=== PATIENT | female | born 1980 | race Caucasian/White ===

== ENCOUNTER 2019-09-27 23:15 | Emergency (ER) | payer BC, OTHER ==
[~2019-09-27] VITALS: Ht 172.7 cm; Wt 80.0 kg
[2019-09-27] MEDS ORDERED: IV NORMAL SALINE 1,000ML 1,000 ML IV SCH (23:48)
[2019-09-28 00:07] LABS: BASO % 0 % (0-3); EOS # 0.2 x10^3/uL (0.0-0.7); EOS % 3 % (0-3); HEMATOCRIT 38.8 % (36.0-47.0); HEMOGLOBIN 13.1 g/dL (12.0-15.5); LYMPH # 2.5 x10^3/uL (1.0-4.8); LYMPH % 35 % (24-48); MEAN CORPUSCULAR HEMOGLOBIN 32 pg (25-35); MEAN CORPUSCULAR HGB CONC 34 g/dL (31-37); MEAN CORPUSCULAR VOLUME 94 fL (79-100); MONO # 0.5 x10^3/uL (0.0-1.1); MONO % 7 % (0-9); NEUT % 55 % (31-73); PLATELET COUNT 262 x10^3/uL (140-400); RED BLOOD COUNT 4.15 x10^6/uL (3.50-5.40); RED CELL DISTRIBUTION WIDTH 12.6 % (11.5-14.5); WHITE BLOOD COUNT 7.2 x10^3/uL (4.0-11.0)
[2019-09-28 00:11] LABS: CREATININE 0.7 mg/dL (0.6-1.0); GFR 92.2; POTASSIUM 4.1 mmol/L (3.5-5.1)
[2019-09-28] MEDS ORDERED: FAMOTIDINE 20 MG/2 ML VIAL IVP ONE (00:15)
[2019-09-28] MEDS ORDERED: ONDANSETRON PF 4 MG/2 ML VIAL. IVP ONE (00:15)
[2019-09-28 00:16] LABS: ALBUMIN 4.1 g/dL (3.4-5.0); ALBUMIN/GLOBULIN RATIO 1.3 (1.0-1.7); TOTAL BILIRUBIN 0.4 mg/dL (0.2-1.0); TOTAL PROTEIN 7.3 g/dL (6.4-8.2)
[2019-09-28 00:18] LABS: BACTERIA,URINE 0 /HPF (0-FEW); BILIRUBIN,URINE NEG (NEG); CLARITY,URINE CLEAR; COLOR,URINE YELLOW; GLUCOSE,URINE NEG (NEG); NITRITE,URINE NEG (NEG); RBC,URINE 0 /HPF (0-2); SQUAMOUS EPITHELIAL CELL,UR OCC /LPF; UROBILINOGEN,URINE 0.2 mg/dL (0.2 mg/dL); WBC,URINE RARE /HPF (0-4)
[2019-09-28] MEDS ORDERED: CONTRAST GIVEN MC PRN (00:45)
[2019-09-28] MEDS ORDERED: IOHEXOL 300 MG/ML 75 ML VIAL. IV ONE (01:00)
[2019-09-28] MEDS ORDERED: DICYCLOMINE 20 MG/2 ML AMPUL. IM ONE (01:30)
--- NOTE | 2019-09-28 01:43 | RAD ---
PQRS Compliance Statement: One or more of the following individualized dose reduction techniques were utilized for this examination: 1. Automated exposure control 2. Adjustment of the mA and/or kV according to patient size 3. Use of iterative reconstruction technique CT ABD PELV W/ IV CONTRST ONLY Clinical Indication: Left upper quadrant abdominal pain, nausea vomiting x1 week. Comparison: None. Technique: Helical CT imaging of the abdomen and pelvis is performed after 75 cc of Omnipaque 300 IV contrast. Oral contrast not administered. Findings: Lung bases are clear. Cardiac size normal. Liver, gallbladder, pancreas, adrenal glands, abdominal aorta, and kidneys are normal. 2 small hypodensities of the anterior spleen may be cysts or hemangiomas. Stomach unremarkable. There is no dilated small bowel. There is no colon wall thickening. Appendix not identified. If not surgically absent, no secondary signs of appendicitis. No abdominal adenopathy or free fluid. Moderate colon stool volume. Urinary bladder is normal. Small hypodensity of the posterior endocervical junction may be a fibroid versus nabothian cyst. There is trace pelvic free fluid, likely physiologic in a patient of this age. Anteverted uterus. Small left femoral head bone island. No acute bone abnormality. IMPRESSION: 1. No acute abdominal or pelvic abnormality. 2. Moderate colon stool volume. 3. Trace pelvic free fluid, likely physiologic Electronically signed by: Ian Murphy MD (09/28/2019 1:40 AM) [id number]
--- NOTE | 2019-09-28 01:48 | PHYS DOC ---
Past History Past Medical History: Diverticulitis, Endometriosis, Other Additional Past Medical Histor: mrsa, fractured jaw, tbi, celiac disease, surguries:L hip,excision endometr Past Surgical History: Appendectomy, Other Additional Past Surgical Histo: rt foot,sinus,d&c,rt ankle,rt shoulder,hardwar remove rt ankle,lasik,jaw Alcohol Use: None Adult General Chief Complaint Chief Complaint: GI PROBLEM HPI HPI Patient is a 39 year old female who presents with complaint of abdominal pain. Patient states that her abdominal pain symptoms started approximately one week ago. Notes that her pain has been centered mostly along the upper and left upper portions of her abdomen. Notes that the pain started out dull, however she started having sharp cramping type pain within the last 2 days. States she also has had associated nausea and vomiting. Normal bowel movement earlier today. Denies any blood in stool or loose stools. Has had previous history of diverticulitis and endometriosis. Has not had any fevers. Rates pain currently as 8 out of 10. Took Tylenol and ibuprofen at home with no significant relief in symptoms. Review of Systems Review of Systems Constitutional: Denies fever or chills [] Eyes: Denies change in visual acuity, redness, or eye pain [] HENT: Denies nasal congestion or sore throat [] Respiratory: Denies cough or shortness of breath [] Cardiovascular: Denies chest pain or edema[] GI: Abdominal pain, nausea, vomiting, denies bloody stools or diarrhea[] : Denies dysuria or hematuria [] Musculoskeletal: Denies back pain or joint pain [] Integument: Denies rash or skin lesions [] Neurologic: Denies headache, focal weakness or sensory changes [] All other systems were reviewed and found to be within normal limits, except as documented in this note. Current Medications Current Medications Current Medications Medications (Trade) Dose Ordered Sig/Ha Start Time Stop Time Status Last Admin Dose Admin Dicyclomine HCl (Bentyl) 10 mg 1X ONCE 09/28/19 01:30 09/28/19 01:31 DC 09/28/19 01:20 10 MG Famotidine (Pepcid Vial) 20 mg 1X ONCE 09/28/19 00:15 09/28/19 00:16 DC 09/28/19 00:28 20 MG Fentanyl Citrate (Fentanyl 2ml Vial) 50 mcg PRN Q15MIN PRN 09/28/19 00:00 09/28/19 23:59 09/28/19 00:28 50 MCG Info (Do NOT chart on this entry -- for MONITORING) 1 each PRN DAILY PRN 09/28/19 00:45 09/30/19 00:44 Iohexol (Omnipaque 300 Mg/ml) 75 ml 1X ONCE 09/28/19 01:00 09/28/19 01:01 DC 09/28/19 01:02 75 ML Ondansetron HCl (Zofran) 4 mg 1X ONCE 09/28/19 00:15 09/28/19 00:16 DC 09/28/19 00:28 4 MG Sodium Chloride 1,000 ml @ 1,000 mls/hr Q1H 09/27/19 23:48 09/28/19 00:47 DC 09/28/19 00:28 1,000 MLS/HR Allergies Allergies Allergies Coded Allergies Type Severity Reaction Last Updated Verified Penicillins Allergy Unknown 09/27/19 Yes Sulfa (Sulfonamide Antibiotics) Allergy Unknown 09/27/19 Yes bacitracin Allergy Unknown 09/27/19 Yes bupropion Allergy Unknown 09/27/19 Yes nickel Allergy Unknown 09/27/19 Yes titanium Allergy Unknown 09/27/19 Yes tixocortol Allergy Unknown 09/27/19 Yes Uncoded Allergies Type Severity Reaction Last Updated Verified ptertbutylphenol fomraldehyde resin Allergy Unknown 09/27/19 Physical Exam Physical Exam Constitutional: Alert, afebrile, appears in moderate discomfort. [] HENT: Normocephalic, atraumatic, bilateral external ears normal, oropharynx moist, no oral exudates, nose normal. [] Eyes: PERRLA, EOMI, conjunctiva normal, no discharge. [] Neck: Normal range of motion, no tenderness, supple, no stridor. [] Cardiovascular:Heart rate regular rhythm, no murmur [] Lungs & Thorax: Bilateral breath sounds clear to auscultation [] Abdomen: Bowel sounds normal, soft, epigastric and left upper quadrant tenderness to palpation, mild guarding, no rebound tenderness, no masses, no p ulsatile masses. [] Skin: Warm, dry, no erythema, no rash. [] Back: No tenderness, no CVA tenderness. [] Extremities: No tenderness, no cyanosis, no clubbing, ROM intact, no edema. [] Neurologic: Alert and oriented X 3, normal motor function, normal sensory function, no focal deficits noted. [] Current Patient Data Vital Signs Vital Signs Date Time Temp Pulse Resp B/P (MAP) Pulse Ox O2 Delivery O2 Flow Rate FiO2 09/28/19 00:28 18 97 09/27/19 23:25 98.3 83 131/78 (95) Room Air Lab Results Laboratory Tests Test 09/27/19 23:25 09/27/19 23:45 09/27/19 23:58 Urine Collection Type Unknown Urine Color Yellow Urine Clarity Clear Urine pH 7.0 Urine Specific [place] 1.015 Urine Protein Neg (NEG-TRACE) Urine Glucose (UA) Neg mg/dL (NEG) Urine Ketones (Stick) Neg mg/dL (NEG) Urine Blood Neg (NEG) Urine Nitrite Neg (NEG) Urine Bilirubin Neg (NEG) Urine Urobilinogen Dipstick 0.2 mg/dL (0.2 mg/dL) Urine Leukocyte Esterase Neg (NEG) Urine RBC 0 /HPF (0-2) Urine WBC Rare /HPF (0-4) Urine Squamous Epithelial Cells Occ /LPF Urine Bacteria 0 /HPF (0-FEW) White Blood Count 7.2 x10^3/uL (4.0-11.0) Red Blood Count 4.15 x10^6/uL (3.50-5.40) Hemoglobin 13.1 g/dL (12.0-15.5) Hematocrit 38.8 % (36.0-47.0) Mean Corpuscular Volume 94 fL (79-100) Mean Corpuscular Hemoglobin 32 pg (25-35) Mean Corpuscular Hemoglobin Concent 34 g/dL (31-37) Red Cell Distribution Width 12.6 % (11.5-14.5) Platelet Count 262 x10^3/uL (140-400) Neutrophils (%) (Auto) 55 % (31-73) Lymphocytes (%) (Auto) 35 % (24-48) Monocytes (%) (Auto) 7 % (0-9) Eosinophils (%) (Auto) 3 % (0-3) Basophils (%) (Auto) 0 % (0-3) Neutrophils # (Auto) 4.0 x10^3uL (1.8-7.7) Lymphocytes # (Auto) 2.5 x10^3/uL (1.0-4.8) Monocytes # (Auto) 0.5 x10^3/uL (0.0-1.1) Eosinophils # (Auto) 0.2 x10^3/uL (0.0-0.7) Basophils # (Auto) 0.0 x10^3/uL (0.0-0.2) Sodium Level 141 mmol/L (136-145) Potassium Level 4.1 mmol/L (3.5-5.1) Chloride Level 104 mmol/L (98-107) Carbon Dioxide Level 26 mmol/L (21-32) Anion Gap 11 (6-14) Blood Urea Nitrogen 7 mg/dL (7-20) Creatinine 0.7 mg/dL (0.6-1.0) Estimated GFR (Cockcroft-Gault) 92.2 BUN/Creatinine Ratio 10 (6-20) Glucose Level 88 mg/dL (70-99) Calcium Level 9.0 mg/dL (8.5-10.1) Total Bilirubin 0.4 mg/dL (0.2-1.0) Aspartate Amino Transferase (AST) 16 U/L (15-37) Alanine Aminotransferase (ALT) 25 U/L (14-59) Alkaline Phosphatase 58 U/L (46-116) Total Protein 7.3 g/dL (6.4-8.2) Albumin 4.1 g/dL (3.4-5.0) Albumin/Globulin Ratio 1.3 (1.0-1.7) Lipase 158 U/L (73-393) POC Urine HCG, Qualitative hcg negative (Negative) EKG EKG Not performed[] Radiology/Procedures Radiology/[place] [address] IMAGING REPORT Signed PATIENT: DAVID HENAO JACCOUNT: [id number] : 1980 LOCATION: ER AGE: 39 SEX: F EXAM STATUS: REG ER ORD. PHYSICIAN: CARLIN SANTANA MD REASON: left upper quadrant abdominal pain, OMNI 300, 75ml PROCEDURE: CT ABD PELV W/ IV CONTRST ONLY PQRS Compliance Statement: One or more of the following individualized dose reduction techniques were utilized for this examination: 1. Automated exposure control 2. Adjustment of the mA and/or kV according to patient size 3. Use of iterative reconstruction technique CT ABD PELV W/ IV CONTRST ONLY Clinical Indication: Left upper quadrant abdominal pain, nausea vomiting x1 week. Comparison: None. Technique: Helical CT imaging of the abdomen and pelvis is performed after 75 cc of Omnipaque 300 IV contrast. Oral contrast not administered. Findings: Lung bases are clear. Cardiac size normal. Liver, gallbladder, pancreas, adrenal glands, abdominal aorta, and kidneys are normal. 2 small hypodensities of the anterior spleen may be cysts or hemangiomas. Stomach unremarkable. There is no dilated small bowel. There is no colon wall thickening. Appendix not identified. If not surgically absent, no secondary signs of appendicitis. No abdominal adenopathy or free fluid. Moderate colon stool volume. Urinary bladder is normal. Small hypodensity of the posterior endocervical junction may be a fibroid versus nabothian cyst. There is trace pelvic free fluid, likely physiologic in a patient of this age. Anteverted uterus. Small left femoral head bone island. No acute bone abnormality. IMPRESSION: 1. No acute abdominal or pelvic abnormality. 2. Moderate colon stool volume. 3. Trace pelvic free fluid, likely physiologic Electronically signed by: Ian Fry MD (09/28/2019 1:40 AM) [id number] DICTATED AND SIGNED BY: IAN FRY MD DATE: 09/28/19 0140 CC: CARLIN SANTANA MD; PCP,NO ~ [] Course & Med Decision Making Course & Med Decision Making Pertinent Labs and Imaging studies reviewed. (See chart for details) Patient given IV fluids, fentanyl, Pepcid, Zofran, and Bentyl. Blood work and CT imaging showed no acute life-threatening or surgical causes for symptoms. Vital signs remained stable at this time. Symptoms improved with medications given. Patient appears appropriate for discharge with outpatient follow-up in the next 1-2 days for reevaluation. Prescribed Bentyl and Zofran for outpatient treatment. Advised return to emergency department for any worsening symptoms. Patient was understanding and in agreement with treatment plan. Dragon Disclaimer Dragon Disclaimer This electronic medical record was generated, in whole or in part, using a voice recognition dictation system. Departure Departure: Impression: Primary Impression: Abdominal pain Disposition: HOME, SELF-CARE Condition: IMPROVED Referrals: [facility] (PCP) Patient Instructions: Abdominal Pain (Nonspecific) Additional Instructions: Follow-up with your primary doctor in 2 days for reevaluation. Return to the emergency department for any worsening symptoms. Scripts Ondansetron (ONDANSETRON ODT) 4 Mg Tab.rapdis 1 TAB PO Q6-8HRS PRN for NAUSEA/VOMITING, #16 TAB Prov: CARLIN SANTANA MD 09/28/19 Dicyclomine Hcl (DICYCLOMINE HCL) 20 Mg Tablet 1 TAB PO QID, #30 TAB Prov: CARLIN SANTANA MD 09/28/19 Problem Qualifiers Primary Impression: Abdominal pain Abdominal location: left upper quadrant Qualified Codes: R10.12 - Left upper quadrant pain CARLIN SANTANA MD Sep 28, 2019 01:48
[2019-09-28] MEDS ORDERED: DICY20TA3 PO (01:58)
[2019-09-28] MEDS ORDERED: ONDA4TAB12 PO (01:58)
[2019-09-28 02:11] VITALS: BP 126/61
== END 2019-09-28 02:30 | disposition home or self-care (01) ==
LOC: ER 23:15
DX: R10.12 Left upper quadrant pain (principal); R10.13 Epigastric pain; R11.2 Nausea with vomiting, unspecified; Z90.49 Acquired absence of other specified parts of digestive tract; Z88.0 Allergy status to penicillin; Z88.2 Allergy status to sulfonamides; Z88.8 Allergy status to other drugs, medicaments and biological substances
CPT/HCPCS: 36415; 74177; 80053; 81001; 81025; 83690; 85025; 96361; 96372; 96374; 96375; 99285; J0500; J2405; J3010; J3490; Q9967; J7030